=== PATIENT | female | born 1945 | race Caucasian/White ===

== ENCOUNTER 2022-08-05 03:27 | Inpatient (IN) | payer MEDICARE, OTHER ==
[~2022-08-05] VITALS: Ht 157.5 cm; Wt 92.5 kg
[~2022-08-05 03:27] MED LIST: ATEN-41 PO; FURO-150 PO; HYDR100T25 PO; HYT1 PO; INSU200I SQ; LIP40 PO; OXYB10TA4 PO
[2022-08-05 03:30] VITALS: BP_SYST 122
--- NOTE | 2022-08-05 03:31 | NUR ---
Placed in room 3 . Placed on desk monitor, blood pressure machine and pulse oximeter. To gown for exam. Side rails up. Report given to FERMIN NAVARRETE(REG).
--- NOTE | 2022-08-05 03:55 | NUR ---
ELIDIA Gunter at bedside examining patient.
--- NOTE | 2022-08-05 03:55 | NUR ---
# 20 gauge angiocath placed to RAC. Use of asceptic technique. Opsite placed over site. Blood return noted.Flushed with 10 cc of normal saline. No evidence of infiltration noted. Patient tolerated well.
[2022-08-05] MEDS ORDERED: ACETAMINOPHEN 325 MG TABLET PO ONE (04:15)
--- NOTE | 2022-08-05 05:00 | NUR ---
MEDICATED ORDERED , PATIENT STABLE , WILL CONTIONUE TO MONITOR
[2022-08-05] MEDS ORDERED: FUROSEMIDE 40 MG/4 ML VIAL IVP ONE ×2 (06:30→16:15)
[2022-08-05 06:57] LABS: BASOPHILS % (AUTO) 0.7 % (0.0-2.0); EOSINOPHILS % (AUTO) 0.6 % (0.0-4.0); HEMATOCRIT 24.3 % (36-48); HEMOGLOBIN 7.8 g/dL (12.0-16.0); LYMPHOCYTES # (AUTO) 0.6 K/uL (1.0-5.5); LYMPHOCYTES % (AUTO) 11.5 % (20.5-51.5); MEAN CORPUSCULAR HEMOGLOBIN 28 pg (27-31); MEAN CORPUSCULAR HGB CONC 32 % (32-36); MEAN CORPUSCULAR VOLUME 88 fL (79.0-98.0); MONOCYTES # (AUTO) 0.6 K/uL (0.0-1.0); MONOCYTES % (AUTO) 11.7 % (1.7-9.3); NEUTROPHILS # (AUTO) 3.7 K/uL (1.8-7.7); NEUTROPHILS % (AUTO) 75.5 % (40.0-70.0); PLATELET COUNT (AUTO) 140 K/uL (130-430); RED BLOOD CELL COUNT(AUTO) 2.77 MIL/uL (4.2-6.2); RED CELL DISTRIBUTION WIDTH 18.6 % (9.0-15.0); WHITE BLOOD COUNT (AUTO) 4.9 K/uL (4.8-10.8)
--- NOTE | 2022-08-05 07:00 | NUR ---
PATIENT RESTING QUITELY , V/SS . ENDORSED TO INCOMING RN
[2022-08-05 07:11] LABS: ANION GAP 9 (5-15); CALCIUM 7.5 mg/dL (8.4-11.0); CHLORIDE 96 mmol/L (98-107); CREATININE 5.51 mg/dL (0.55-1.30)
[2022-08-05 07:20] LABS: ALANINE AMINOTRANSFERASE 21 U/L (12-78); ALBUMIN 3.3 g/dL (3.4-4.8); ASPARTATE AMINOTRANSFERASE 17 U/L (10-37); TOTAL BILIRUBIN 0.4 mg/dL (0.0-1.0)
[2022-08-05 07:22] LABS: GLUCOSE 424 mg/dL (70-99)
[2022-08-05 07:23] LABS: UREA NITROGEN, BLOOD 143 mg/dL (8-21)
[2022-08-05] MEDS ORDERED: INSULIN REGULAR, HUMAN 100 UNITS/ML, 3 ML VIAL SUBCUT ONE (07:45)
--- NOTE | 2022-08-05 08:26 | NUR ---
Critical lab values: Glucose 424 BUN 143 Notified
--- NOTE | 2022-08-05 08:41 | NUR ---
BP 109/61, OKAY TO GIVE LASIX NOW PER DR MASON.
[2022-08-05] MEDS ORDERED: INSULIN REGULAR, HUMAN 10 UNITS/0.1 ML, 3 ML VIAL ONE (08:45)
--- NOTE | 2022-08-05 09:51 | NUR ---
NO ACUTE CHANGES IN CONDITION, T IN NAD. RESP EVEN AND UNLABORED, ON VIA NC @95%.
--- NOTE | 2022-08-05 11:34 | NUR ---
PT AWAKE, IN NAD. DENIES ANY PAIN, DOES NOT WANT ANY WATER WHEN OFFERRED. PT DENIES ANY PAIN. REQUESTED FOR HIS SON TO BE CALLED.
--- NOTE | 2022-08-05 12:09 | NUR ---
SPOKE WITH SON SOPHIE, HE WILL COME VISIT HIS MOM SOON.
--- NOTE | 2022-08-05 13:06 | NUR ---
DIABETIC TRAY GIVEN TO PT, EATING WELL. ASSISTED WITH REPOSITIONING OF PT. SAFETY PRECAUTIONS IN PLACE. WILL CONT TO MONITOR.
[2022-08-05] MEDS ORDERED: DEXTROSE 50% JECT 50 ML DISP.SYRIN IVP PRN (15:15)
--- NOTE | 2022-08-05 15:40 | NUR ---
DR THOMPSON IN NURSING STATION, UPDATED ON PT'S STATUS AND LOW BP/VITALS. REQUESTS FOR PT TO HAVE MORE LASIX AND BE PLACED ON SIIMPLE MASK. ORDERS RECEIEVED.
--- NOTE | 2022-08-05 16:06 | NUR ---
DR ROSARIO-SURGEON CALLED, UPDATED ON PT'S LABS AND VITALS.
[2022-08-05] MEDS ORDERED: CALCIUM ACETATE 667 MG CAP PO ONE (16:45)
--- NOTE | 2022-08-05 16:55 | NUR ---
Dr. Trevizo at bedside to speak with pt and get consent.
--- NOTE | 2022-08-05 17:25 | NUR ---
Admit bed requested Patient will be admitted to care of . Admitted to TELE unit. Diagnosis CHF Inpatient (Yes or No) Y Observation (Yes or No) N Orientation concerns or request close to nursing station (Yes or No) N Covid Status NEG On vent or bipap N Isolation requirements N Needs a sitter N From Home (Yes or if No enter name of facility) Y Requires Dialysis (Yes or No) Y Med Rec Completed (Yes of No) Y
[2022-08-05] MEDS: CALCIUM ACETATE 667 MG CAP PO SCH (18:00)
[2022-08-05 18:14] LABS: INR 1.2 (0.8-1.2); PROTHROMBIN TIME 12.1 SECS (9.5-12.5)
--- NOTE | 2022-08-05 18:36 | NUR ---
DR ROSARIO CALLED BACK AND OKAY TO USE CATHETER.
--- NOTE | 2022-08-05 18:55 | NUR ---
Patient will be admitted to care of DR JHAVERI. Admitted to TELE unit. Will go to room 103B. Belongings list completed. Complete and up to date summary report printed. SBAR report to be given at bedside with opportunity for questions.
[2022-08-05 21:00] VITALS: BP_SYST 112
[2022-08-05] MEDS: INSULIN REGULAR, HUMAN 100 UNITS/ML, 3 ML VIAL (humuLIN R) SUBCUT PRN (22:26)
[2022-08-06 01:07] VITALS: BP_SYST 118
--- NOTE | 2022-08-06 04:57 | NUR ---
CONSULTATION PAGED/CALLED Reason for Consultation: renal failure Person Who was Notified: dr abarca already saw pt Consulting Physician: dr abarca Orthodontic Technician Specialty: Ordering Physician: james
--- NOTE | 2022-08-06 05:00 | NUR ---
CONSULTATION PAGED/CALLED Reason for Consultation: chf Person Who was Notified: terry Consulting Physician: puhc Manager Motor Specialty: Ordering Physician: james
--- NOTE | 2022-08-06 05:56 | NUR ---
Shift Summary: patient is AAOX4. vitals are stable. patient received hemodialysis treatment during shift. 2L output per HD RN. patient informed to call staff if she needs to ambulate for any reason. patient states she understands and has no further questions or concerns at this time. will endorse to oncoming nurse. call light within reach, bed set to low, locked, and alarm on.
[2022-08-06 06:58] LABS: BASOPHILS % (AUTO) 0.5 % (0.0-2.0); EOSINOPHILS # (AUTO) 0.1 K/uL (0.0-0.4); EOSINOPHILS % (AUTO) 1.3 % (0.0-4.0); HEMATOCRIT 23.7 % (36-48); HEMOGLOBIN 7.7 g/dL (12.0-16.0); LYMPHOCYTES # (AUTO) 0.7 K/uL (1.0-5.5); LYMPHOCYTES % (AUTO) 11.7 % (20.5-51.5); MEAN CORPUSCULAR HEMOGLOBIN 28 pg (27-31); MEAN CORPUSCULAR HGB CONC 32 % (32-36); MEAN CORPUSCULAR VOLUME 87 fL (79.0-98.0); MONOCYTES # (AUTO) 0.6 K/uL (0.0-1.0); MONOCYTES % (AUTO) 11.4 % (1.7-9.3); NEUTROPHILS # (AUTO) 4.2 K/uL (1.8-7.7); NEUTROPHILS % (AUTO) 75.1 % (40.0-70.0); RED BLOOD CELL COUNT(AUTO) 2.74 MIL/uL (4.2-6.2); RED CELL DISTRIBUTION WIDTH 18.4 % (9.0-15.0); WHITE BLOOD COUNT (AUTO) 5.6 K/uL (4.8-10.8)
[2022-08-06 07:16] LABS: ALANINE AMINOTRANSFERASE 14 U/L (12-78); ALBUMIN 3.2 g/dL (3.4-4.8); ANION GAP 11 (5-15); ASPARTATE AMINOTRANSFERASE 15 U/L (10-37); CALCIUM 7.3 mg/dL (8.4-11.0); CHLORIDE 100 mmol/L (98-107); CREATININE 3.28 mg/dL (0.55-1.30); GLUCOSE 130 mg/dL (70-99); PHOSPHORUS 4.4 mg/dL (2.7-4.5); TOTAL BILIRUBIN 0.5 mg/dL (0.0-1.0); UREA NITROGEN, BLOOD 73 mg/dL (8-21)
[2022-08-06 07:20] LABS: TOTAL IRON BIND. CAPACITY 248 ug/dL (250-450)
[2022-08-06 07:38] VITALS: BP_SYST 114
[2022-08-06] MEDS: CALCIUM ACETATE 667 MG CAP PO SCH ×3 (08:27→17:52)
--- NOTE | 2022-08-06 09:23 | NUR ---
PAGED DR CHRISTY. TO INFORM MD THAT PT HAD HD THIS AM PER HD RN.
[2022-08-06 12:53] LABS: PLATELET COUNT (AUTO) 132 K/uL (130-430)
[2022-08-06] MEDS ORDERED: NEPHROVITE, (FOLIC ACID/VITAMIN B COMP W-C 1 TAB) PO ONE (14:00)
[2022-08-06] MEDS: SOD FERRIC GLUC COMPLEX/SUC 125 MG in NS 100 ML IV SCH (14:41)
[2022-08-06 15:35] LABS: BILIRUBIN,URINE NEGATIVE (NEGATIVE); BLOOD, URINE NEGATIVE (NEGATIVE); CLARITY/URINE SL CLOUDY (CLEAR); COLOR,URINE YELLOW (YELLOW); GLUCOSE,URINE TRACE (NEGATIVE); KETONES,URINE NEGATIVE (NEGATIVE); LEUKOCYTE ESTERASE ,URINE 1+ (NEGATIVE); NITRITE, URINE NEGATIVE (NEGATIVE); PH,URINE 5.5 (5.0-8.0); PROTEIN URINE 2+ (NEGATIVE); UROBILINOGEN,URINE 0.2 (0.2-1.0)
[2022-08-06 16:14] LABS: BACTERIA,URINE MODERATE /HPF (None Seen); RBC,URINE NONE SEEN /HPF (0-3)
[2022-08-06 16:15] LABS: MUCUS,URINE None Seen /LPF (None Seen)
[2022-08-06] MEDS: INSULIN REGULAR, HUMAN 100 UNITS/ML, 3 ML VIAL (humuLIN R) SUBCUT PRN ×2 (16:38→20:52)
[2022-08-06] MEDS: EPOETIN ALFA-EPBX 4,000 UNITS/ML VIAL SUBCUT SCH (17:53)
[2022-08-06 17:59] VITALS: BP_SYST 152
--- NOTE | 2022-08-06 18:56 | NUR ---
PT HAS BEEN STABLE THE WHOLE SHIFT, NO SOB, NO DISTRESS, VITALS WNL, NO FEVER. ALL MEDS OFFERED AND TAKEN BY PT. PT HAD 1 BM AND LITTLE URINE OUTPUT. PT HAD HD LAST NITE.
[2022-08-06 19:53] VITALS: BP_SYST 103
[2022-08-06 23:39] VITALS: BP_SYST 111
[2022-08-07 07:21] LABS: BASOPHILS % (AUTO) 0.6 % (0.0-2.0); EOSINOPHILS % (AUTO) 0.7 % (0.0-4.0); HEMATOCRIT 24.8 % (36-48); HEMOGLOBIN 8.1 g/dL (12.0-16.0); LYMPHOCYTES # (AUTO) 0.8 K/uL (1.0-5.5); LYMPHOCYTES % (AUTO) 16.5 % (20.5-51.5); MEAN CORPUSCULAR HEMOGLOBIN 28 pg (27-31); MEAN CORPUSCULAR HGB CONC 33 % (32-36); MEAN CORPUSCULAR VOLUME 87 fL (79.0-98.0); MONOCYTES # (AUTO) 0.6 K/uL (0.0-1.0); NEUTROPHILS # (AUTO) 3.7 K/uL (1.8-7.7); NEUTROPHILS % (AUTO) 71.2 % (40.0-70.0); PLATELET COUNT (AUTO) 124 K/uL (130-430); RED BLOOD CELL COUNT(AUTO) 2.85 MIL/uL (4.2-6.2); RED CELL DISTRIBUTION WIDTH 18.6 % (9.0-15.0); RETICULOCYTE COUNT 2.7 % (0.5-1.5); WHITE BLOOD COUNT (AUTO) 5.2 K/uL (4.8-10.8)
[2022-08-07 07:47] VITALS: BP_SYST 106
[2022-08-07 07:49] LABS: ANION GAP 12 (5-15); CALCIUM 7.9 mg/dL (8.4-11.0); CHLORIDE 100 mmol/L (98-107); CREATININE 3.69 mg/dL (0.55-1.30); GLUCOSE 212 mg/dL (70-99); UREA NITROGEN, BLOOD 81 mg/dL (8-21)
[2022-08-07] MEDS ORDERED: ADENOSINE 6MG/2ML VIAL IVP ONE (08:00)
[2022-08-07] MEDS: CALCIUM ACETATE 667 MG CAP PO SCH ×3 (08:32→18:00)
[2022-08-07] MEDS: NEPHROVITE, (FOLIC ACID/VITAMIN B COMP W-C 1 TAB) PO SCH (08:32)
[2022-08-07] MEDS ORDERED: CARVEDILOL 3.125 MG TABLET (COREG) PO ONE (09:00)
[2022-08-07 11:26] VITALS: BP_SYST 98
[2022-08-07] MEDS: INSULIN REGULAR, HUMAN 100 UNITS/ML, 3 ML VIAL (humuLIN R) SUBCUT PRN ×3 (11:50→21:52)
--- NOTE | 2022-08-07 13:52 | NUR ---
Dietitian Recommendations *Continue mechanical soft, low CHO, renal diet *Consider Glucerna BID ONS if intakes remain poor GS, RD Please refer to RD assessment for further details Addendum: 08/07/22 at [address] Amended: Links added.
--- NOTE | 2022-08-07 14:51 | NUR ---
DR. IFEOMA ALCANTAR CONSULT FOR PERMACATH PLACEMENT, CALLED AND SPOKE TO HIM DIRECTLY. HE SAID SINCE IT ISNT AN EMERGENCY, PATIENT WONT BE ABLE TO GET TILL WEDNESDAY. WILL NOTIFY RN AND CHARGE NURSE.
[2022-08-07] MEDS: SOD FERRIC GLUC COMPLEX/SUC 125 MG in NS 100 ML IV SCH (15:19)
[2022-08-07 15:22] VITALS: BP_SYST 114
--- NOTE | 2022-08-07 16:45 | NUR ---
PT GETTING DIALYZED NOW.
--- NOTE | 2022-08-07 19:00 | NUR ---
ENDORSED TO NIGHT RN TO START NEW IV ON R. ARM TOP HAND BEC THE LEFT HAND IS BEING RESERVED FOR AV GRAFT PLACEMENT.
[2022-08-07 19:36] VITALS: BP_SYST 128
[2022-08-07] MEDS: CARVEDILOL 3.125 MG TABLET (COREG) PO SCH (21:08)
[2022-08-08 00:18] VITALS: BP_SYST 106
[2022-08-08] MEDS: INSULIN REGULAR, HUMAN 100 UNITS/ML, 3 ML VIAL (humuLIN R) SUBCUT PRN ×2 (06:26→11:57)
[2022-08-08 06:58] LABS: ANION GAP 9 (5-15); CALCIUM 8.6 mg/dL (8.4-11.0); CHLORIDE 101 mmol/L (98-107); GLUCOSE 207 mg/dL (70-99); UREA NITROGEN, BLOOD 46 mg/dL (8-21)
[2022-08-08 06:59] LABS: CREATININE 2.89 mg/dL (0.55-1.30)
[2022-08-08 07:08] LABS: BASOPHILS % (AUTO) 0.7 % (0.0-2.0); EOSINOPHILS # (AUTO) 0.1 K/uL (0.0-0.4); EOSINOPHILS % (AUTO) 0.9 % (0.0-4.0); HEMATOCRIT 27.5 % (36-48); HEMOGLOBIN 8.9 g/dL (12.0-16.0); LYMPHOCYTES # (AUTO) 0.8 K/uL (1.0-5.5); LYMPHOCYTES % (AUTO) 12.8 % (20.5-51.5); MEAN CORPUSCULAR HEMOGLOBIN 29 pg (27-31); MEAN CORPUSCULAR HGB CONC 32 % (32-36); MEAN CORPUSCULAR VOLUME 88 fL (79.0-98.0); MONOCYTES # (AUTO) 0.6 K/uL (0.0-1.0); MONOCYTES % (AUTO) 9.9 % (1.7-9.3); NEUTROPHILS # (AUTO) 4.5 K/uL (1.8-7.7); NEUTROPHILS % (AUTO) 75.7 % (40.0-70.0); PLATELET COUNT (AUTO) 140 K/uL (130-430); RED BLOOD CELL COUNT(AUTO) 3.11 MIL/uL (4.2-6.2); RED CELL DISTRIBUTION WIDTH 19.1 % (9.0-15.0); WHITE BLOOD COUNT (AUTO) 5.9 K/uL (4.8-10.8)
[2022-08-08 07:56] VITALS: BP_SYST 108
[2022-08-08] MEDS: CARVEDILOL 3.125 MG TABLET (COREG) PO SCH ×2 (09:00→21:29)
[2022-08-08] MEDS: NEPHROVITE, (FOLIC ACID/VITAMIN B COMP W-C 1 TAB) PO SCH (09:06)
[2022-08-08] MEDS: CALCIUM ACETATE 667 MG CAP PO SCH ×3 (09:06→18:43)
--- NOTE | 2022-08-08 13:00 | NUR ---
NEW IV STARTED ASEPTICALLY ON THE R. FOREARM.
[2022-08-08] MEDS: SOD FERRIC GLUC COMPLEX/SUC 125 MG in NS 100 ML IV SCH (13:59)
--- NOTE | 2022-08-08 15:09 | NUR ---
PT ASSISTED TO BS COMMODE. CALL LIGHT IN REACH, TOLD PT NOT TO STAND BY HERSELF. NEED TO CALL THE NURSE FOR ASSIST BACT TO BED.
[2022-08-08 16:04] VITALS: BP_SYST 136
--- NOTE | 2022-08-08 18:22 | NUR ---
PT STILL ON HD.
[2022-08-08] MEDS: EPOETIN ALFA-EPBX 4,000 UNITS/ML VIAL SUBCUT SCH (18:44)
--- NOTE | 2022-08-08 18:54 | NUR ---
HD COMPLETED, PER HD RN, OUTPUT IS 2.5LI
--- NOTE | 2022-08-08 20:00 | NUR ---
Recieved pt from am nurse. patient is AAOX4. vitals are stable. patient received hemodialysis treatment during AM shift. 2L output per HD RN. patient informed to call staff if she needs to ambulate for any reason. Pt uses the bsc. patient states she understands and has no further questions or concerns at this time. will endorse to oncoming nurse. call light within reach, bed set to low, locked, and alarm on.
[2022-08-08 20:24] VITALS: BP_SYST 129
[2022-08-08 20:25] VITALS: BP_SYST 129
[2022-08-09 00:50] VITALS: BP_SYST 106
[2022-08-09 08:00] VITALS: BP_SYST 129
[2022-08-09] MEDS: CARVEDILOL 3.125 MG TABLET (COREG) PO SCH ×2 (09:43→21:46)
[2022-08-09] MEDS: NEPHROVITE, (FOLIC ACID/VITAMIN B COMP W-C 1 TAB) PO SCH (09:43)
[2022-08-09] MEDS: CALCIUM ACETATE 667 MG CAP PO SCH ×3 (09:43→16:30)
[2022-08-09] MEDS ORDERED: MAG-AL HYDROX/SIMETH 30 ML UDC PO PRN (10:00)
[2022-08-09] MEDS ORDERED: BISACODYL 5 MG TABLET.DR (DULCOLAX) PO ONE (10:00)
[2022-08-09] MEDS ORDERED: DOCUSATE SODIUM 100 MG CAPSULE PO ONE (11:30)
[2022-08-09 12:00] VITALS: BP_SYST 109
[2022-08-09 12:57] LABS: BASOPHILS % (AUTO) 0.6 % (0.0-2.0); EOSINOPHILS % (AUTO) 0.3 % (0.0-4.0); HEMATOCRIT 26.4 % (36-48); HEMOGLOBIN 8.5 g/dL (12.0-16.0); LYMPHOCYTES # (AUTO) 0.8 K/uL (1.0-5.5); LYMPHOCYTES % (AUTO) 13.4 % (20.5-51.5); MEAN CORPUSCULAR HEMOGLOBIN 28 pg (27-31); MEAN CORPUSCULAR HGB CONC 32 % (32-36); MEAN CORPUSCULAR VOLUME 89 fL (79.0-98.0); MONOCYTES # (AUTO) 0.6 K/uL (0.0-1.0); MONOCYTES % (AUTO) 9.8 % (1.7-9.3); NEUTROPHILS # (AUTO) 4.8 K/uL (1.8-7.7); NEUTROPHILS % (AUTO) 75.9 % (40.0-70.0); PLATELET COUNT (AUTO) 118 K/uL (130-430); RED BLOOD CELL COUNT(AUTO) 2.98 MIL/uL (4.2-6.2); RED CELL DISTRIBUTION WIDTH 18.8 % (9.0-15.0); WHITE BLOOD COUNT (AUTO) 6.3 K/uL (4.8-10.8)
[2022-08-09 13:02] LABS: ANION GAP 10 (5-15); CALCIUM 8.9 mg/dL (8.4-11.0); CHLORIDE 101 mmol/L (98-107); CREATININE 2.82 mg/dL (0.55-1.30); GLUCOSE 242 mg/dL (70-99); UREA NITROGEN, BLOOD 36 mg/dL (8-21)
[2022-08-09] MEDS: INSULIN REGULAR, HUMAN 100 UNITS/ML, 3 ML VIAL (humuLIN R) SUBCUT PRN ×3 (13:53→21:47)
[2022-08-09 16:00] VITALS: BP_SYST 122
[2022-08-09] MEDS: SOD FERRIC GLUC COMPLEX/SUC 125 MG in NS 100 ML IV SCH (17:49)
--- NOTE | 2022-08-09 17:50 | NUR ---
DOSE 4 OF 4 ferrlecit given
[2022-08-09] MEDS ORDERED: SOD FERRIC GLUC COMPLEX/SUC 125 MG in NS 100 ML IV ONE (18:00)
--- NOTE | 2022-08-09 18:30 | NUR ---
Miss Tan has been assessed as indicated. She continues to deny pain. she does complain of an "upset" stomach and requests maalox. An order was obtained.and the medication was provided. She also had a laxative that was ordered by . She had a large BM this shift. She has not had a noted void. she states that the abnormality to het left breast is related to skin CA. She is resting quietly at this time
--- NOTE | 2022-08-09 19:15 | NUR ---
Handoff has been given to Jose Elias
[2022-08-09 20:00] VITALS: BP_SYST 129
[2022-08-10 07:09] LABS: BASOPHILS % (AUTO) 0.5 % (0.0-2.0); EOSINOPHILS # (AUTO) 0.1 K/uL (0.0-0.4); EOSINOPHILS % (AUTO) 1.2 % (0.0-4.0); HEMATOCRIT 25.1 % (36-48); HEMOGLOBIN 8.1 g/dL (12.0-16.0); LYMPHOCYTES # (AUTO) 0.7 K/uL (1.0-5.5); LYMPHOCYTES % (AUTO) 12.9 % (20.5-51.5); MEAN CORPUSCULAR HEMOGLOBIN 28 pg (27-31); MEAN CORPUSCULAR HGB CONC 32 % (32-36); MEAN CORPUSCULAR VOLUME 88 fL (79.0-98.0); MONOCYTES # (AUTO) 0.6 K/uL (0.0-1.0); MONOCYTES % (AUTO) 11.8 % (1.7-9.3); NEUTROPHILS % (AUTO) 73.6 % (40.0-70.0); PLATELET COUNT (AUTO) 119 K/uL (130-430); RED BLOOD CELL COUNT(AUTO) 2.85 MIL/uL (4.2-6.2); RED CELL DISTRIBUTION WIDTH 19.1 % (9.0-15.0); WHITE BLOOD COUNT (AUTO) 5.4 K/uL (4.8-10.8)
[2022-08-10 07:45] LABS: ANION GAP 9 (5-15); CALCIUM 8.4 mg/dL (8.4-11.0); CHLORIDE 103 mmol/L (98-107); CREATININE 3.27 mg/dL (0.55-1.30); GLUCOSE 158 mg/dL (70-99); UREA NITROGEN, BLOOD 37 mg/dL (8-21)
[2022-08-10 08:00] VITALS: BP_SYST 135
--- NOTE | 2022-08-10 08:00 | NUR ---
Initial notes Patient is Aox4. No ss of distress noted. Breathing is even and nonlabored, on 2 L O2 via NC. No SOB noted. Patient denies pain. Vital signs obtained, as documented. Iv patent. Patient states does not want to eat now, will try later. Bed locked, alarm on, and at lowest position. Call light within reach.
[2022-08-10] MEDS ORDERED: DOCUSATE SODIUM 100 MG CAPSULE PO SCH (09:00)
[2022-08-10] MEDS: CALCIUM ACETATE 667 MG CAP PO SCH ×3 (10:27→17:04)
[2022-08-10] MEDS: NEPHROVITE, (FOLIC ACID/VITAMIN B COMP W-C 1 TAB) PO SCH (10:27)
[2022-08-10] MEDS: CARVEDILOL 3.125 MG TABLET (COREG) PO SCH ×2 (10:28→21:24)
[2022-08-10 11:19] VITALS: BP_SYST 122
[2022-08-10] MEDS: INSULIN REGULAR, HUMAN 100 UNITS/ML, 3 ML VIAL (humuLIN R) SUBCUT PRN ×3 (12:26→21:44)
--- NOTE | 2022-08-10 12:48 | NUR ---
NOTES Notes Patient is EATING LUNCH. NO SS OF DISTRESS NOTED. PATIENT DENIES PAIN. BREATHING IS EVEN AND NONLABORED, ON 2 LO O2 VIA NC. BED LOCKED, ALARM ON, AND AT LOWEST POSITION. CALL LIGHT WITHIN REACH.
--- NOTE | 2022-08-10 13:06 | NUR ---
CM: Late entry: faxed order and request: transfer pt for permacath placement and out patient HD set up. Later , per Janet, director , she received phone call from [facility] Torres stated would arrange the transfer , possible for this pm. Dr Christensen and pts son/Zack made aware.
[2022-08-10 16:18] VITALS: BP_SYST 126
[2022-08-10] MEDS: EPOETIN ALFA-EPBX 4,000 UNITS/ML VIAL SUBCUT SCH (16:57)
--- NOTE | 2022-08-10 17:16 | NUR ---
Nutrition F/U: Admitting Diagnosis: Congestive heart failure Reviewed Pertinent Medical/Surgical Hx Medical Record; Patient; RN Medical History Comment: per EMR: 76[facility] w/ acute on chronic orthopnea w/o chest pain. BG was in 450 range. Pt reports chronic headache. Pt was seen here about 1 month ago with nearly identical presentation and was found to have CHF exacerbation and transferred to [place]. PMHx: CHF, insulin-dependent DM, CAD, HTN, morbid obesity Subjective Information: RD rounded to patient room and s/w patient at bedside. RD noted patient with poor PO: 36% x [address] inquired about PO, patient stated she does not like diet foods, she does not like food without salt as it has no flavor, and she reports she will just eat normal foods once d/c. Pt reports usual intake includes eggs and urbano for breakfast, ham sandwich at lunch, and spaghetti or tuna for dinner. Pt agreeable to try vanilla Glucerna for increased nutrition. RN came to patient room to let pt know she will likely be d/c to [place] later today. Per RD chart review, documented LBM 08/06 x 1 with no GI symptoms. Per RN note, pt c/o stomach upset and requested Maalox 08/09 Patient documented with soft, non-distended abdomen 08/09. Pt on 2L O2 via NC. Per EMR, R alan catheter placed 08/05 and pt had first HD session. Pt noted with last HD 08/08 with 2.5L removed. Pt will require permcath for dialysis. [place] patient, and pt reports she has appt with [place] vascular surgeon this week for L arm AV fistula. Current Diet Order/Nutrition Support: Mechanical soft, low CHO 45, renal x 5 Patient/Significant Other Able To Verbalize Education Provided Not Indicated: Patient not interested in nutr edu at this time Pertinent Medications: Nephro-jorge, Retacrit, SSI, Phoslo, Mylanta, Colace, Coreg Pertinent Labs: Drawn 08/10- Hgb 8.1 L, BG 158 H, POC BG 211, 159 H, hba1c 7.4 H, BUN 37 H, Cre 3.27 H, NA/K/Ca/Phos WNL Height (Feet) 5 feet Height (Inches) 2.00 inches Weight (Pounds) 204 pounds Weight (Calculated Kilograms) 92.718220 kilograms Patient Weight 92.533 kg Body Mass Index 37.31 kg/m2 %IBW 185 [place]/Adjusted Body Weight 110 #/ 50 kg ADJ IBW- 134 #/61 kg Recent Weight Change No Weight Status Obese Gastrointestinal Symptoms None Last BM Aug 07, 2022 Food Allergies No Usual Diet At Home Regular Skin Integrity Comment: Sherman 14 w/ no apparent skin issues Edema: 2+ pitting Bilateral leg per EMR 08/09 Current % PO Poor (avg 36% x 7 meals) Estimated Energy Expenditure (kcals/day) 3600-9351 kcal (25-30 kcal/kg ADJ IBW d/t obesity) Estimated Protein Required (g/day) 61- 92 g(1-1.5 g/kg ADJ IBW d/t ESRD) Estimated Fluid Required (l/day) Refer to MD (CHF) Problem/Etiology/Signs/Symptoms * Undesirable food choices RT SNF diet AEB pt not on a diabetic diet, high HbA1c and BG levels. (On-going) * Not ready for dietary changes r/t CCHO, renal, low Na diet a/e/b poor PO d/t patient refusing diet foods; pt endorses consuming normal foods BUSINESS PLANNING DIRECTOR (New) Expected Outcomes/Goals PO intake provides >85% estimated nutrient needs, nutrition-related labs trending WNL, continued skin integrity, BM q1-3 days Dietitian Recommendations *Consider less restrictive diet order for improved PO: Consistent CHO diet *Glucerna (vanilla) BID High Risk: F/U in 2-3days
--- NOTE | 2022-08-10 17:18 | NUR ---
Dietitian Recommendations *Consider less restrictive diet order for improved PO: Consistent CHO diet *Glucerna (vanilla) BID Please refer to nutrition F/U for details, thanks! CC, MPH, RDN
--- NOTE | 2022-08-10 18:50 | NUR ---
Closing Notes Patient is eating dinner. No ss of distress noted. Breathing is even and nonlabored, on 2 L O2 via NC. Patient denies pain. Patient is stable. IV patent. All needs met. Bed is locked, alarm on, and at lowest position. Call light within reach.
--- NOTE | 2022-08-10 20:35 | NUR ---
OSMANY RECEIVED CALL FROM CHAGO FROM [facility]. PT ACCEPTED AT [facility] ROOM [address] LIRA. REPORT TO [phone]. [facility] WILL ARRANGE TRANSPORT IN AN HOUR.
[2022-08-10 20:48] VITALS: BP_SYST 122
--- NOTE | 2022-08-10 21:09 | NUR ---
REPORT GIVEN TO NURSE ANNI CERON [phone]. PT TO GO TO RM 4016. LEFT MESSAGE TO PT'S SON SOPHIE [phone].
--- NOTE | 2022-08-10 23:18 | NUR ---
D/C Patient Patient given medication reconciliation form and D/C instructions. Exit Care provided. Patient verbalized understanding. MD discussed with patient the results and treatment provided. Patient in stable condition, ID band removed. IV catheter intact R.FA 22G. Patient educated on pain management. All belongings sent with patient. Paperwork given to [facility] transport.
== END 2022-08-10 23:18 | disposition short-term general hospital (02) | DRG 291 ==
LOC: SED 03:27 → STU 12:48 → SMU 08-09 19:32
PROVIDERS: ADMIT Internal Medicine; ATTEND Internal Medicine
PROC: 02HV33Z Insertion of Infusion Device into Superior Vena Cava, Percutaneous Approach (ICD-10-PCS; principal; 2022-08-05)
PROC: B548ZZA Ultrasonography of Superior Vena Cava, Guidance (ICD-10-PCS; 2022-08-05)
PROC: 5A1D70Z Performance of Urinary Filtration, Intermittent, Less than 6 Hours Per Day (ICD-10-PCS; 2022-08-05)
PROC: 5A1D70Z Performance of Urinary Filtration, Intermittent, Less than 6 Hours Per Day (ICD-10-PCS; 2022-08-06)
PROC: 5A1D70Z Performance of Urinary Filtration, Intermittent, Less than 6 Hours Per Day (ICD-10-PCS; 2022-08-07)
PROC: 5A1D70Z Performance of Urinary Filtration, Intermittent, Less than 6 Hours Per Day (ICD-10-PCS; 2022-08-08)
DX: I13.2 Hypertensive heart and chronic kidney disease with heart failure and with stage 5 chronic kidney disease, or end stage renal disease (principal); I50.43 Acute on chronic combined systolic (congestive) and diastolic (congestive) heart failure; N18.6 End stage renal disease; E44.1 Mild protein-calorie malnutrition; N17.9 Acute kidney failure, unspecified; R18.8 Other ascites; I25.10 Atherosclerotic heart disease of native coronary artery without angina pectoris; E66.9 Obesity, unspecified; E66.01 Morbid (severe) obesity due to excess calories; E11.22 Type 2 diabetes mellitus with diabetic chronic kidney disease; E11.40 Type 2 diabetes mellitus with diabetic neuropathy, unspecified; D63.1 Anemia in chronic kidney disease; E83.51 Hypocalcemia; Z20.822 Contact with and (suspected) exposure to COVID-19; Z79.4 Long term (current) use of insulin; Z79.899 Other long term (current) drug therapy; Z99.2 Dependence on renal dialysis; Z88.6 Allergy status to analgesic agent; Z68.37 Body mass index [BMI] 37.0-37.9, adult
CPT/HCPCS: 36415; 71045; 76376; 76770; 80048; 80053; 81000; 82607; 82962; 83036; 83540; 83550; 83880; 84100; 84484; 85025; 85044; 85379; 85610-TC; 85730-TC; 86886; 86900; 86901; 87081; 87086; 90935; 90937; 93005; 93306; 96372; 96374; 99285; C1751; G0378; J1815; J1940; J2916; J7030; Q5106